=== PATIENT | male | born 1985 | race Caucasian/White ===

== ENCOUNTER 2018-02-25 15:10 | Emergency (ER) | payer MEDICAID ==
--- NOTE | 2018-02-25 16:04 | EDPHY ---
H & P Time Seen by Provider: 02/25/18 15:54 HPI/ROS: CHIEF COMPLAINT: Left 4th finger laceration HISTORY OF PRESENT ILLNESS: 32-year-old [id number] male with up-to- date tetanus sustained accidental laceration left 4th digit palmar aspect when he was moving sheet metal. No flexor or extensor deficits. No paresthesia. Occurred shortly prior to arrival. PHYSICAL EXAM (Prior to examination, patient consented to physical exam, hands were washed and my usual and customary physical exam procedures followed) 1) GENERAL: Well-developed, well-nourished, alert and oriented. Appears to be in no acute distress. 2) HEAD: Normocephalic 3) HEENT: sclera anicteric 4) LUNGS: Breathing comfortably. 5) SKIN: Left 4th digit palmar palmar aspect, PIP joint flap laceration measuring 2 cm with viable flap tissue. Left palm overlying the 4th metacarpal 3 cm laceration. Superficial. No flexor dysfunction. 6) MUSCULOSKELETAL: FDP, FDS function intact. No signs of infection. Negative kanavel. 7) NEUROLOGIC: Two-point discrimination intact Smoking Status: Current every day smoker Constitutional: Initial Vital Signs Temperature (C) 36.4 C 02/25/18 15:18 Heart Rate 69 02/25/18 15:18 Respiratory Rate 18 02/25/18 15:18 Blood Pressure 126/76 H 02/25/18 15:18 O2 Sat (%) 98 02/25/18 15:18 O2 Delivery Mode Room Air Allergies/Adverse Reactions: No Known Allergies Allergy (Unverified 02/25/18 15:21) Home Medications: Medication Instructions Recorded Cephalexin [Keflex] 500 mg PO TID 5 Days cap 02/25/18 MDM/Departure - MDM Procedures: Procedure: Laceration repair 1 I explained the indications, risks and benefits for both laceration repair and anesthetic administration. Verbal consent was obtained from the patient. The laceration on the left 4th digit was anesthetized using 0.5% bupivicaine without epinephrine digital nerve block. After anesthetic administered the patient was observed for a period of time and had no apparent adverse effects. The wound was cleaned, prepped, draped in normal sterile fashion and explored to its base. No foreign body seen, no foreign bodies palpated. There were no deep structures involved. No tendon injury was identified. FDS, FDP function intact. The wound was repaired with 7 simple interrupted 5 O Prolene sutures. The wound repair was complex. The procedure was performed by myself. Patient has been informed that scarring will occur, although efforts have been made to minimize this. Procedure: Laceration repair 2 I explained the indications, risks and benefits for both laceration repair and anesthetic administration. Verbal consent was obtained from the patient. The laceration on the left palm was anesthetized using 0.5% bupivicaine with epinephrine. After anesthetic administered the patient was observed for a period of time and had no apparent adverse effects. The wound was cleaned, prepped, draped in normal sterile fashion and explored to its base. No foreign body seen, no foreign bodies palpated. There were no deep structures involved. No tendon injury was identified. The wound was repaired with 7 simple interrupted 5 0 Prolene suture. The wound repair was complex. The procedure was performed by myself. Patient has been informed that scarring will occur, although efforts have been made to minimize this. ED Course/Re-evaluation: Care of patient under supervision of primary Supervising physician Dr Vivar . Given my usual and customary wound precautions instructions. - Depart Disposition: Home, Routine, Self-Care Clinical Impression: Laceration of finger of left hand Qualifiers: Finger: ring finger Condition: Good Instructions: Finger Laceration (ED) Additional Instructions: Return to the ER if you develop redness, swelling, discharge, warmth to the wound, red streaks going up your arm or any other symptoms that concern you. Prescriptions: Cephalexin [Keflex] 500 mg PO TID 5 Days cap Referrals: Return, to the ER in 10 days for suture removal [Other] - As per Instructions
[2018-02-25 17:01] VITALS: BP 134/88
== END 2018-03-07 12:05 | disposition home or self-care (01) ==
PROC: 0HQGXZZ Repair Left Hand Skin, External Approach (ICD-10-PCS; principal; 2018-02-25)
DX: S61.412A Laceration without foreign body of left hand, initial encounter (principal); W26.8XXA Contact with other sharp object(s), not elsewhere classified, initial encounter; Y99.0 Civilian activity done for income or pay

== ENCOUNTER 2018-08-13 11:39 | Emergency (ER) | payer MEDICAID | END 2018-08-13 15:09 | disposition home or self-care (01) ==